=== PATIENT | female | born 1970 | race Hispanic/Latino ===

== ENCOUNTER 2023-11-28 16:42 | Emergency (ER) | payer BC ==
[~2023-11-28] VITALS: Ht 157.5 cm; Wt 56.7 kg
[2023-11-28] MEDS ORDERED: ACETAMINOPHEN 500 MG TABLET PO ONE (19:30)
[2023-11-28 20:57] LABS: COVID19 (SARS ANTIGEN RAPID) PRESUMPTIVE NEGATIVE (NEGATIVE); INFLUENZA TYPE A Negative For Type A (NEGATIVE); INFLUENZA TYPE B Negative For Type B (NEGATIVE)
[2023-11-28] MEDS ORDERED: BUDE90AE IH (22:11)
[2023-11-28] MEDS ORDERED: BENZ-39 PO (22:11)
[2023-11-28 22:32] VITALS: BP 136/74; PULSE 79; RESP 20; O2SAT 99
== END 2023-11-28 22:33 | disposition home or self-care (01) ==
LOC: EDH 16:42
DX: J06.9 Acute upper respiratory infection, unspecified (principal); R05.9 Cough, unspecified; R50.9 Fever, unspecified; Z20.822 Contact with and (suspected) exposure to COVID-19
CPT/HCPCS: 87426; 87804

== ENCOUNTER 2024-04-10 19:34 | Emergency (ER) | payer BC ==
[~2024-04-10] VITALS: Ht 152.4 cm; Wt 64.0 kg
[~2024-04-10 19:34] MED LIST: BENZ-39 PO; BUDE90AE IH
[2024-04-10] MEDS: FAMOTIDINE 20MG VIAL IV ONE (20:21)
[2024-04-10] MEDS: ONDANSETRON 4MG INJ IVP ONE (20:21)
[2024-04-10] MEDS: METOCLOPRAMIDE 10 MG/2 ML VIAL IVP ONE (20:21)
[2024-04-10] MEDS: 0.9%NACL 1000ML 1,000 ML IV ONE (20:22)
[2024-04-10 20:43] LABS: BASOPHILS # (AUTO) 0.02 K/uL (0.00-0.20); BASOPHILS % (AUTO) 0.3 % (0.0-5.0); EOSINOPHILS # (AUTO) 0.07 K/uL (0.00-0.70); HEMATOCRIT 36.7 % (36-48); IMMATURE GRANULOCYTE ABSOLUTE 0.01 K/uL (0-1); LYMPHOCYTES # (AUTO) 2.3 K/uL (1.0-4.8); LYMPHOCYTES % (AUTO) 32.2 % (21.0-51.0); MEAN CORPUSCULAR HEMOGLOBIN 30.8 pg (27.0-33.0); MEAN CORPUSCULAR HGB CONC 33.5 g/dL (32.0-36.0); MEAN CORPUSCULAR VOLUME 91.8 fL (79-99); MONOCYTES # (AUTO) 0.6 K/uL (0.1-1.0); MONOCYTES % (AUTO) 8.9 % (3.0-13.0); NEUTROPHILS % (AUTO) 57.5 % (40.0-77.0); PLATELET COUNT (AUTO) 226 K/uL (130-400); RED CELL DISTRIBUTION WIDTH 13.3 % (11.0-15.5)
[2024-04-10 20:45] LABS: ADD UA MICROSCOPIC YES; APPEARANCE,URINE CLEAR (CLEAR); BILIRUBIN,URINE NEGATIVE (NEGATIVE); COLOR,URINE YELLOW (YELLOW); GLUCOSE, URINE (UA) NEGATIVE (NEGATIVE); KETONES,URINE NEGATIVE (NEGATIVE); LEUKOCYTE ESTERASE ,URINE 75 Leu/uL (NEGATIVE); NITRATE,URINE NEGATIVE (NEGATIVE); OCCULT BLOOD,URINE LARGE (NEGATIVE); PROTEIN,URINE 30 mg/dL (NEGATIVE); UROBILINOGEN,URINE 0.2 mg/dL (0.2-1.0)
[2024-04-10 20:47] LABS: CREATININE 0.7 mg/dL (0.5-1.0); POTASSIUM 3.1 mmol/L (3.5-5.1)
[2024-04-10 20:51] LABS: ALBUMIN 3.4 g/dL (3.5-5.0); BILIRUBIN,TOTAL 0.2 mg/dL (0.2-1.0); TOTAL PROTEIN, SERUM 7.5 g/dL (6.0-8.3)
[2024-04-10 21:11] LABS: BACTERIA,URINE RARE /HPF (None Seen); CALCIUM OXALATE CRYSTALS,UR FEW /LPF (None Seen); MUCUS,URINE RARE LPF (None Seen); RBC,URINE 51-100 /HPF (0-1); SQUAMOUS EPITHELIAL CELL,UR RARE /HPF (0-2); YEAST,URINE BUDDING FEW /HPF (None Seen)
[2024-04-10] MEDS ORDERED: CEFD300C3 PO (21:55)
[2024-04-10] MEDS ORDERED: FAMO20TA8 PO (21:55)
[2024-04-10 22:13] VITALS: BP 111/57; PULSE 66; RESP 18; O2SAT 98
[2024-04-10] MEDS: CEFTRIAXONE 1G VIAL IVPB SCH (22:27)
== END 2024-04-10 22:46 | disposition home or self-care (01) ==
LOC: EDH 19:34
DX: N39.0 Urinary tract infection, site not specified (principal); K29.00 Acute gastritis without bleeding
CPT/HCPCS: 99284; 96365; 96375; 80053; 83690; 85025; 87088; 81001; 36415; J3490; J7030; J0696; J2405; J2765